=== PATIENT | female | born 1975 | race Caucasian/White ===

== ENCOUNTER → 2021-02-10 | Outpatient (CLI) | payer OTHER ==
[~2021-02-10] MED LIST: 'PARAFON FORTE500 M1 PO; ASPIRIN81 M1 PO; FEROSUL325 MG PO; LISINOPRIL-HYDR1 TA1 PO; LISINOPRIL5 MG PO; NAPROSYN500 MG PO; SYNTHROID25 MCG PO; VITAMIN B 12 IM; VITAMIN D10000 UNIT PO; VITAMIN D50000 I3 PO; WELLBUTRIN SR200 MG PO
== END | disposition home or self-care (01) ==
LOC: CT 14:58
PROVIDERS: ATTEND Internal Medicine
DX: K76.0 Fatty (change of) liver, not elsewhere classified (principal); R16.1 Splenomegaly, not elsewhere classified; K46.9 Unspecified abdominal hernia without obstruction or gangrene; Z90.49 Acquired absence of other specified parts of digestive tract

== ENCOUNTER → 2022-02-16 | Outpatient (CLI) | payer OTHER ==
[~2022-02-16] MED LIST changes: +CYMBALTA60 MG PO; +PRILOSEC20 M1 PO
== END | disposition home or self-care (01) ==
LOC: MAMMO 15:22
PROVIDERS: ATTEND Internal Medicine
DX: Z12.31 Encounter for screening mammogram for malignant neoplasm of breast (principal); R06.02 Shortness of breath

== ENCOUNTER → 2022-02-22 | Outpatient (CLI) | payer OTHER | END | disposition home or self-care (01) | LOC: CARD 00:04 | PROVIDERS: ATTEND Internal Medicine | DX: I10 Essential (primary) hypertension (principal); R07.89 Other chest pain ==

== ENCOUNTER → 2023-06-07 | Outpatient (CLI) | payer OTHER | END | disposition home or self-care (01) | LOC: MRI 00:30 | PROVIDERS: ATTEND Internal Medicine | DX: I65.23 Occlusion and stenosis of bilateral carotid arteries (principal); R90.82 White matter disease, unspecified; H57.02 Anisocoria ==